=== PATIENT | female | born 1940 | race Caucasian/White ===

== ENCOUNTER 2019-02-19 07:00 | Day surgery (SDC) | payer MEDICARE ==
[2019-02-19] MEDS ORDERED: Lactated Ringers 1,000 ML IV ONE (08:30)
[2019-02-19] MEDS ORDERED: Propofol 200 MG/20 ML SDV ONE (08:44)
[2019-02-19] MEDS ORDERED: fentaNYL 100 MCG/2 ML SDV ONE (08:44)
[2019-02-19] MEDS ORDERED: Midazolam 1 MG/ML 2 ML SDV ONE (08:44)
[2019-02-19] MEDS ORDERED: Cyanocobalamin (Vitamin B12) 1,000 MCG/ML SDV IM ONE (08:45)
[2019-02-19] MEDS ORDERED: MVI, Adult with Vitamin K 10 ML, Thiamine 200 MG, Chromium/Copper/Mang/Selen/Zn 1 ML in... IV ONE ×4 (09:45)
[2019-02-19] MEDS ORDERED: Pantoprazole 40 MG Vial IVPUSH ONE (10:30)
[2019-02-19 12:19] VITALS: BP 167/88
[2019-02-20 17:07] LABS: H. PYLORI BREATH TEST Negative (Negative)
--- NOTE | 2019-02-22 09:59 | OR ---
DATE OF PROCEDURE: 02/19/2019 PREOPERATIVE DIAGNOSIS: Epigastric pain, status post Francisco-en-Y gastric bypass. POSTOPERATIVE DIAGNOSIS: Normal upper GI endoscopy exam, status post Francisco-en-Y gastric bypass. OPERATIVE PROCEDURE: Upper GI endoscopy with biopsies of gastric pouch for CLOtest. ANESTHESIA: IV sedation. INDICATIONS FOR PROCEDURE: This is a 78-year-old presenting with some ongoing epigastric pain, presently is on Nexium. She has tried Carafate as well but did not tolerate that. Plan is to proceed with an upper GI endoscopy with biopsies as indicated. Potential risks including bleeding and perforation were discussed, and the patient wishes to proceed. DETAILS OF PROCEDURE: The patient was taken to the operating room and placed in a left lateral decubitus position. IV sedation was administered, after which the upper GI endoscope was passed orally through the length of the esophagus and into the gastric pouch, and from there through the gastrojejunostomy roughly 20 cm into the Francisco limb. Overall, the findings were entirely normal. There were no areas of inflammation or stricturing present and no retained fluid or suggestion of more distal obstruction, however, seen. At this point, biopsies were obtained from the gastric pouch, sent for CLOtest for H. pylori. Minimal bleeding from the biopsy site was seen and the procedure was then concluded. The plan will be to doubly test the patient for H. pylori by means of a breath test as possibly we are dealing with some inflammation within the bypassed stomach which is not visible by the endoscopic approach. We will continue the Nexium and then also take Tums on a p.r.n. basis helpful. She will be following up with Maryjo Fairbanks at [facility] in roughly 1 month. Ronald Moser MD /[id number]
== END 2019-02-19 12:28 | disposition home or self-care (01) ==
LOC: JP.SDS 07:00
PROVIDERS: ATTEND Surgery
DX: R10.13 Epigastric pain (principal); I25.10 Atherosclerotic heart disease of native coronary artery without angina pectoris; E11.9 Type 2 diabetes mellitus without complications; J44.9 Chronic obstructive pulmonary disease, unspecified; Z91.012 Allergy to eggs; Z88.8 Allergy status to other drugs, medicaments and biological substances; Z98.84 Bariatric surgery status; Z79.899 Other long term (current) drug therapy
CPT/HCPCS: 43239; 83013; 87081; C9113; J2250; J2704; J3010; J3411; J3420; J7120

== ENCOUNTER 2020-05-05 13:09 | Emergency (ER) | payer MEDICARE ==
[2020-05-05 13:23] VITALS: BP 149/61; PULSE 73
[2020-05-05] MEDS ORDERED: Sodium Chloride 0.9% 10 ML Syringe FLUSH PRN (13:48)
[2020-05-05] MEDS ORDERED: LORazepam 2 MG/ML SDV IVPUSH ONE (13:48)
--- NOTE | 2020-05-05 13:52 | EDM.PDOC ---
ED HPI GENERAL MEDICAL PROBLEM - General Chief Complaint: General Stated Complaint: POSSIBLE MINI STROKE Time Seen by Provider: 05/05/20 13:30 Source of Information: Reports: Patient, RN Notes Reviewed History Limitations: Reports: No Limitations - History of Present Illness INITIAL COMMENTS - FREE TEXT/NARRATIVE: Jennifer presents today with her family. She reports complaints of right sided headache 06/15 that will not get better with tylenol and ibuprofen. She reports headache has been present for 3 weeks and is now worse. She states she also gets shaking of bother of her arms and hands with the headache. She states the pain starts to the right side of her head and radiates to the right face. The pain is stabbing and constant. She denies difficulty with eating or drinking. She states nothing helps the pain or makes the pain worsen. she reports generalized body aches the past few days. - Related Data Allergies Allergy/AdvReac Type Severity Reaction Status Date / Time isosorbide [Isosorbide] Allergy Mild Rash Verified 05/05/20 13:16 nickel [Nickel] Allergy Unknown Rash Verified 05/05/20 13:16 zoster vaccine live Allergy Unknown Itching Verified 05/05/20 13:16 propoxyphene Allergy Hives Verified 05/05/20 13:16 cows milk Allergy Unknown Cough Uncoded 05/05/20 13:16 Home Meds: Home Meds Calcium Citrate 950 mg PO BID 08/23/13 [History] Cetirizine [ZyrTEC] 10 mg PO DAILY 08/23/13 [History] Cholecalciferol (Vitamin D3) [Vitamin D3] 5,000 unit PO DAILY 08/23/13 [History] Cyanocobalamin (Vitamin B-12) [Vitamin B-12] 1,000 mcg PO DAILY 08/23/13 [History] Esomeprazole [NexIUM] 40 mg PO DAILY 08/23/13 [History] Multivitamin [Multi-Vitamin Daily] 1 tab PO BID 08/23/13 [History] Vitamin B Complex [B Complex] 1 tab PO DAILY 08/23/13 [History] Gabapentin [Neurontin] 400 mg PO DAILY 01/27/15 [History] Simvastatin 40 mg PO BEDTIME 01/27/15 [History] Ondansetron [Zofran ODT] 4 mg PO Q4HR PRN 02/18/19 [History] Fluticasone Propionate [Flonase] 1 spray NASBOTH DAILY 02/19/19 [History] Diclofenac Sodium [Voltaren] 1 applic TOP DAILY 07/28/19 [History] Aspirin [Aspir 81] 81 mg PO DAILY 05/05/20 [History] Fluticasone Propionate [Flonase] 1 dose MARTINA ASDIRECTED 05/05/20 [History] Lisinopril/Hydrochlorothiazide [Lisinopril-Hctz 20-12.5 mg Tab] 1 tab PO DAILY 05/05/20 [History] Ranitidine [Zantac] 150 mg PO BID 05/05/20 [History] Past Medical History HEENT History: Reports: Cataract, Impaired Vision, Other (See Below) Other HEENT History: wears glasses Cardiovascular History: Reports: High Cholesterol, Hypertension Respiratory History: Reports: Asthma Gastrointestinal History: Reports: GERD Genitourinary History: Reports: Renal Calculus 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: Musculoskeletal History: Reports: Arthritis, Other (See Below) Other Musculoskeletal History: right hip pain with R lower back pain Neurological History: Reports: None Psychiatric History: Reports: None Endocrine/Metabolic History: Reports: Diabetes, Type II, Obesity/BMI 30+ Hematologic History: Reports: Blood Transfusion(s) Immunologic History: Reports: None Oncologic (Cancer) History: Reports: None Dermatologic History: Reports: None - Infectious Disease History Infectious Disease History: Reports: Chicken Pox, Measles, Mumps - Past Surgical History Head Surgeries/Procedures: Reports: None HEENT Surgical History: Reports: Cataract Surgery GI Surgical History: Reports: Appendectomy, Bariatric Procedure, Cholecystectomy, Colonoscopy, EGD, Other (See Below) Female Surgical History: Reports: Hysterectomy, Salpingo-Oophorectomy Musculoskeletal Surgical History: Reports: Knee Replacement Social & Family History - Tobacco Use Smoking Status *Q: Never Smoker - Caffeine Use Caffeine Use: Reports: Coffee - Recreational Drug Use Recreational Drug Use: No ED ROS GENERAL - Review of Systems Review Of Systems: See Below Constitutional: Denies: Fever, Chills, Malaise, Weakness, Fatigue, Diaphoresis HEENT: Reports: Other (right sided headache that radiates to the right face) Respiratory: Reports: No Symptoms Cardiovascular: Reports: No Symptoms Endocrine: Reports: No Symptoms GI/Abdominal: Reports: No Symptoms : Reports: No Symptoms Musculoskeletal: Reports: Other (generalized body aches) Skin: Reports: No Symptoms Neurological: Reports: Headache, Tremors. Denies: Confusion, Dizziness, Numbness, Paresthesia, Seizure, Syncope, Tingling, Trouble Speaking, Difficulty Walking, Weakness, Change in Speech, Gait Disturbance Psychiatric: Reports: No Symptoms Hematologic/Lymphatic: Reports: No Symptoms Immunologic: Reports: No Symptoms ED EXAM, GENERAL - Physical Exam Exam: See Below Exam Limited By: No Limitations General Appearance: Alert, WD/WN, Mild Distress Eye Exam: Bilateral Eye: EOMI, Normal Inspection, PERRL Ears: Normal External Exam, Normal Canal, Hearing Grossly Normal, Normal TMs Nose: Normal Inspection, Normal Mucosa, No Blood Throat/Mouth: Normal Inspection, Normal Lips, Normal Gums, Normal Oropharynx, Normal Voice, No Airway Compromise Head: Atraumatic, Normocephalic. No: Facial Swelling, Facial Tenderness, Sinus Tenderness Neck: Normal Inspection, Supple, Non-Tender, Full Range of Motion. No: Lymphadenopathy (R), Lymphadenopathy (L) Respiratory/Chest: No Respiratory Distress, Lungs Clear, Normal Breath Sounds, No Accessory Muscle Use, Chest Non-Tender. No: Crackles, Rales, Rhonchi, Wheezing Cardiovascular: Normal Peripheral Pulses, Regular Rate, Rhythm, No Edema, Other (murmur noted) Peripheral Pulses: 2+: Radial (L), Radial (R) GI/Abdominal: Normal Bowel Sounds, Soft, Non-Tender, No Organomegaly, No Distention Back Exam: Normal Inspection, Full Range of Motion. No: CVA Tenderness (R), CVA Tenderness (L) Extremities: Normal Inspection, Normal Range of Motion, Non-Tender, No Pedal Edema, Normal Capillary Refill Neurological: Alert, Oriented, CN II-XII Intact, Normal Cognition, Normal Gait, Normal Reflexes, No Motor/Sensory Deficits, Other (No tremors noted, GCS 15, NIH 0) Psychiatric: Normal Affect, Anxious Skin Exam: Warm, Dry, Intact, Normal Color, No Rash Lymphatic: No Adenopathy Course - Vital Signs Last Recorded V/S: Last Vital Signs Temp 35.8 C L 05/05/20 13:25 Pulse 73 05/05/20 13:25 Resp 15 05/05/20 13:25 BP 149/61 H 05/05/20 13:25 Pulse Ox 93 L 05/05/20 13:25 - Orders/Labs/Meds Orders: Active Orders 24 hr Category Date Time Status Sodium Chloride 0.9% [Saline Flush] Med 05/05/20 13:48 Active 10 ml FLUSH ASDIRECTED PRN Saline Lock Insert [OM.PC] Routine Oth 05/05/20 13:48 Ordered Medication Orders Sodium Chloride (Saline Flush) 10 ml FLUSH ASDIRECTED PRN PRN Reason: Keep Vein Open Last Admin: 05/05/20 13:55 Dose: 10 ml Documented by: SAM Labs: Laboratory Tests 05/05/20 05/05/20 05/05/20 Range/Units 13:56 13:56 13:56 WBC 6.7 (4.5-11.0) K/uL RBC 4.12 (3.30-5.50) M/uL Hgb 12.0 (12.0-15.0) g/dL Hct 36.9 (36.0-48.0) % MCV 90 (80-98) fL MCH 29 (27-31) pg MCHC 33 (32-36) % Plt Count 228 (150-400) K/uL Neut % (Auto) 57 (36-66) % Lymph % (Auto) 30 (24-44) % [place] % (Auto) 9 H (2-6) % Eos % (Auto) 3 (2-4) % Baso % (Auto) 1 (0-1) % PT 11.4 (9.5-12.0) sec INR 1.05 (0.80-1.20) Sodium 142 (140-148) mmol/L Potassium 3.7 (3.6-5.2) mmol/L Chloride 106 (100-108) mmol/L Carbon Dioxide 26 (21-32) mmol/L Anion Gap 9.7 (5.0-14.0) mmol/L BUN 18 (7-18) mg/dL Creatinine 1.0 (0.6-1.0) mg/dL Est Cr Clr Drug Dosing 38.97 mL/min Estimated GFR (MDRD) 54 L (>60) Glucose 92 (74-106) mg/dL Calcium 9.1 (8.5-10.1) mg/dL Total Bilirubin 0.5 (0.2-1.0) mg/dL AST 32 (15-37) U/L ALT 36 (12-78) U/L Alkaline Phosphatase 55 (46-116) U/L Total Protein 7.1 (6.4-8.2) g/dL Albumin 3.8 (3.4-5.0) g/dL Globulin 3.3 (2.3-3.5) g/dL Albumin/Globulin Ratio 1.2 (1.2-2.2) Patient lab work reviewed, no acute findings. Meds: Medications Generic Name Dose Route Start Last Admin Trade Name Freq PRN Reason Stop Dose Admin Sodium Chloride 10 ml 05/05/20 13:48 05/05/20 13:55 Saline Flush FLUSH 10 ml ASDIRECTED PRN Administration Keep Vein Open Discontinued Medications Generic Name Dose Route Start Last Admin Trade Name Freq PRN Reason Stop Dose Admin Ketorolac Tromethamine 15 mg 05/05/20 14:29 05/05/20 14:35 Toradol IVPUSH 05/05/20 14:30 15 mg ONETIME ONE Administration Lorazepam 0.5 mg 05/05/20 13:48 05/05/20 13:54 Ativan IVPUSH 05/05/20 13:49 0.5 mg ONETIME ONE Administration - Radiology Interpretation Free Text/Narrative:: Head CT without contrast shows no acute findings. CT Results Date: 05/05/20 - Re-Assessments/Exams Free Text/Narrative Re-Assessment/Exam: 05/05/20 14:30 Patient reports nausea has improve but headache remains. Lab work reviewed, head CT reviewed. No significant findings noted. She can have toradol 15mg IV for pain. 05/05/20 15:13 Pain improved, 12/13 Reviewed lab, CT use of naproxen, gabapentin with patient and her daughter, all her questions were answered. They are in agreement with plan. Departure - Departure Time of Disposition: 15:14 Disposition: Home, Self-Care 01 Clinical Impression: Headache, Facial pain - Discharge Information Instructions: Migraine Headache, [id number] Referrals: Dot Landers CNM [Primary Care Provider] - Forms: ED Department Discharge Additional Instructions: Jennifer has been evaluated and treated for headache/facial pain. Head CT without contrast negative for any acute findings. Pain improved after lorazepam 0.5mg IV, toradol 15mg IV. Concern for trigeminal nerve involvement. Jennifer will take gabapentin as directed, follow up with porcelain technician this week and her primary provider this week. Recheck of pain, status, use of gabapentin and any need to continue past 7 days of prescribed medication. Take naproxen twice per day with food for pain. Report to the emergency room for any worsening, issues or concerns. Sepsis Event Note (ED) - Evaluation Sepsis Screening Result: No Definite Risk - Focused Exam Vital Signs: Vital Signs Temp Pulse Resp BP Pulse Ox 05/05/20 13:25 35.8 C L 73 15 149/61 H 93 L 05/05/20 13:22 35.8 C L 73 15 149/61 H 93 L - My Orders Last 24 Hours: My Active Orders 05/05/20 13:48 Sodium Chloride 0.9% [Saline Flush] 10 ml FLUSH ASDIRECTED PRN Saline Lock Insert [OM.PC] Routine - Assessment/Plan Last 24 Hours: My Active Orders 05/05/20 13:48 Sodium Chloride 0.9% [Saline Flush] 10 ml FLUSH ASDIRECTED PRN Saline Lock Insert [OM.PC] Routine Assessment:: Headache, Facial pain Plan: Jennifer has been evaluated and treated for headache/facial pain. Head CT without contrast negative for any acute findings. Pain improved after lorazepam 0.5mg IV, toradol 15mg IV. Concern for trigeminal nerve involvement. Jennifer will take gabapentin as directed, follow up with porcelain technician this week and her primary provider this week. Recheck of pain, status, use of gabapentin and any need to continue past 7 days of prescribed medication. Take naproxen twice per day with food for pain. Report to the emergency room for any worsening, issues or concerns.
--- NOTE | 2020-05-05 14:18 | CT ---
Head wo Cont CLINICAL HISTORY: Right-sided headache COMPARISON: MR 2016 TECHNIQUE: Transverse scans were obtained from the base of the skull through the vertex without IV contrast on a multislice, multidetector CT scanner. Auto dosage reduction and iterative reconstruction techniques employed. FINDINGS: No focal abnormal parenchymal density is identified. There is no mass effect, hemorrhage, or extraaxial collection. The basal cisterns and sulci over the convexities are prominent. The ventricles are prominent. IMPRESSION: Moderate atrophy No acute intracranial process
[2020-05-05] MEDS ORDERED: Ketorolac 30 MG/ML SDV IVPUSH ONE (14:29)
== END 2020-05-05 15:30 | disposition home or self-care (01) ==
LOC: JP.ED 13:09
DX: R51 Headache (principal); E78.00 Pure hypercholesterolemia, unspecified; I10 Essential (primary) hypertension; J45.909 Unspecified asthma, uncomplicated; K21.9 Gastro-esophageal reflux disease without esophagitis; M19.90 Unspecified osteoarthritis, unspecified site; E11.9 Type 2 diabetes mellitus without complications; E66.9 Obesity, unspecified; Z68.30 Body mass index [BMI] 30.0-30.9, adult; Z88.8 Allergy status to other drugs, medicaments and biological substances; Z91.011 Allergy to milk products; Z91.048 Other nonmedicinal substance allergy status
CPT/HCPCS: 36415; 70450; 80053; 85025; 85610; 96374; 96375; 99284; J1885; J2060

== ENCOUNTER 2021-05-11 12:24 | Emergency (ER) | payer MEDICARE ==
--- NOTE | 2021-05-11 12:51 | EDM.PDOC ---
ED HPI GENERAL MEDICAL PROBLEM - General Chief Complaint: Neuro Symptoms/Deficits Stated Complaint: FALL AND HIT HEAD Time Seen by Provider: 05/11/21 12:39 Source of Information: Reports: Patient, RN Notes Reviewed History Limitations: Reports: No Limitations - History of Present Illness INITIAL COMMENTS - FREE TEXT/NARRATIVE: 80-year-old female presents emergency department today via EMS services following a fall, she was at a local store states she was feeling fine turned around next thing she knew she woke up on the floor she denies any dizziness she was not on even ground does not think she tripped over anything. She has no neurologic complaints. Was able to ambulate to the ambulance at the store. At this time she feels back to her normal self. She did injure herself with a fall hit the front part of her forehead on the concrete floor. Another family member is now present states that she tripped over an uneven step on the ground and then hit her head against the wall. - Related Data Allergies Allergy/AdvReac Type Severity Reaction Status Date / Time isosorbide [Isosorbide] Allergy Mild Rash Verified 05/11/21 12:32 nickel [Nickel] Allergy Unknown Rash Verified 05/11/21 12:32 zoster vaccine live Allergy Unknown Itching Verified 05/11/21 12:32 propoxyphene Allergy Hives Verified 05/11/21 12:32 cows milk Allergy Unknown Cough Uncoded 05/11/21 12:32 Home Meds: Home Meds Calcium Citrate 950 mg PO BID 08/23/13 [History] Cetirizine [ZyrTEC] 10 mg PO DAILY 08/23/13 [History] Cholecalciferol (Vitamin D3) [Vitamin D3] 5,000 unit PO DAILY 08/23/13 [History] Cyanocobalamin (Vitamin B-12) [Vitamin B-12] 1,000 mcg PO DAILY 08/23/13 [History] Esomeprazole [NexIUM] 40 mg PO DAILY 08/23/13 [History] Multivitamin [Multi-Vitamin Daily] 1 tab PO BID 08/23/13 [History] Vitamin B Complex [B Complex] 1 tab PO DAILY 08/23/13 [History] Gabapentin [Neurontin] 400 mg PO DAILY 01/27/15 [History] Simvastatin 40 mg PO BEDTIME 01/27/15 [History] Ondansetron [Zofran ODT] 4 mg PO Q4HR PRN 02/18/19 [History] Fluticasone Propionate [Flonase] 1 spray NASBOTH DAILY 02/19/19 [History] Diclofenac Sodium [Voltaren] 1 applic TOP DAILY 07/28/19 [History] Aspirin [Aspir 81] 81 mg PO DAILY 05/05/20 [History] Fluticasone Propionate [Flonase] 1 dose MARTINA ASDIRECTED 05/05/20 [History] Lisinopril/Hydrochlorothiazide [Lisinopril-Hctz 20-12.5 mg Tab] 1 tab PO DAILY 05/05/20 [History] Ranitidine [Zantac] 150 mg PO BID 05/05/20 [History] Past Medical History HEENT History: Reports: Cataract, Impaired Vision, Other (See Below) Other HEENT History: wears glasses Cardiovascular History: Reports: High Cholesterol, Hypertension Respiratory History: Reports: Asthma Gastrointestinal History: Reports: GERD Genitourinary History: Reports: Renal Calculus 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: Musculoskeletal History: Reports: Arthritis, Other (See Below) Other Musculoskeletal History: right hip pain with R lower back pain Neurological History: Reports: None Psychiatric History: Reports: None Endocrine/Metabolic History: Reports: Diabetes, Type II, Obesity/BMI 30+ Hematologic History: Reports: Blood Transfusion(s) Immunologic History: Reports: None Oncologic (Cancer) History: Reports: None Dermatologic History: Reports: None - Infectious Disease History Infectious Disease History: Reports: Chicken Pox, Measles, Mumps - Past Surgical History Head Surgeries/Procedures: Reports: None HEENT Surgical History: Reports: Cataract Surgery Cardiovascular Surgical History: Reports: None Respiratory Surgical History: Reports: None GI Surgical History: Reports: Appendectomy, Bariatric Procedure, Cholecystectomy, Colonoscopy, EGD, Other (See Below) Other GI Surgeries/Procedures: gastro scopy Female Surgical History: Reports: Hysterectomy, Salpingo-Oophorectomy Endocrine Surgical History: Reports: None Musculoskeletal Surgical History: Reports: Knee Replacement Dermatological Surgical History: Reports: None Social & Family History - Tobacco Use Tobacco Use Status *Q: Never Tobacco User Second Hand Smoke Exposure: No - Caffeine Use Caffeine Use: Reports: Coffee - Recreational Drug Use Recreational Drug Use: No ED ROS GENERAL - Review of Systems Review Of Systems: See Below Constitutional: Reports: No Symptoms HEENT: Reports: No Symptoms Respiratory: Reports: No Symptoms Cardiovascular: Reports: Syncope Endocrine: Reports: Low Glucose GI/Abdominal: Reports: No Symptoms : Reports: No Symptoms Musculoskeletal: Reports: No Symptoms Skin: Reports: Bruising Neurological: Reports: No Symptoms - Physical Exam Exam: See Below Text/Narrative:: Examination the scalp she does have a hematoma developing on the frontal lobe right side Exam Limited By: No Limitations General Appearance: Alert, WD/WN, No Apparent Distress Eye Exam: Bilateral Eye: EOMI, Normal Inspection, PERRL Respiratory/Chest: No Respiratory Distress, Lungs Clear, Normal Breath Sounds, No Accessory Muscle Use, Chest Non-Tender Cardiovascular: Regular Rate, Rhythm, No Murmur GI/Abdominal: Soft, Non-Tender Neuro Exam (Abbreviated): Alert, Oriented, CN II-XII Intact, Normal Gait (Normal gait however she does have an unsteady shift however this is chronic), Other (Chronic tremor) #1 Interpretation EKG Date: 05/11/21 Time: 13:37 Rhythm: NSR [place]: Normal P-Wave: Present QRS: RBBB ST-T: Normal QT: Normal Comparison: Change From Previous EKG Course - Vital Signs Last Recorded V/S: Last Vital Signs Temp 96.7 F L 05/11/21 12:35 Pulse 64 05/11/21 12:35 Resp 12 05/11/21 12:35 BP 147/70 H 05/11/21 12:35 Pulse Ox 96 05/11/21 12:35 - Orders/Labs/Meds Orders: Active Orders 24 hr Category Date Time Status EKG Documentation Completion [RC] ASDIRECTED Care 05/11/21 12:48 Active EKG 12 Lead [EK] Routine Ther 05/11/21 12:47 Ordered Departure - Departure Time of Disposition: 13:46 Disposition: Home, Self-Care 01 Condition: Fair Clinical Impression: Head injury Qualifiers: Encounter type: initial encounter Qualified Code(s): S09.90XA - Unspecified injury of head, initial encounter - Discharge Information Instructions: Head Injury, Adult, [id number] Referrals: PCP,Unknown [Primary Care Provider] - Forms: ED Department Discharge Additional Instructions: Continue with your regular medications, please follow-up with your primary care in the next 3 to 5 days for reevaluation, call return to the emergency department worsening symptoms Sepsis Event Note (ED) - Evaluation Sepsis Screening Result: No Definite Risk - Focused Exam Vital Signs: Vital Signs Temp Pulse Resp BP Pulse Ox 05/11/21 12:35 96.7 F L 64 12 147/70 H 96 05/11/21 12:30 96.7 F L 64 12 147/70 H 96 - My Orders Last 24 Hours: My Active Orders 05/11/21 12:47 EKG 12 Lead [EK] Routine 05/11/21 12:48 EKG Documentation Completion [RC] ASDIRECTED - Assessment/Plan Last 24 Hours: My Active Orders 05/11/21 12:47 EKG 12 Lead [EK] Routine 05/11/21 12:48 EKG Documentation Completion [RC] ASDIRECTED Plan: Assessment Acuity = acute Etiology = due to uneven ground with head injury Manifestations = none Location of injury = Home Lab values = CT scan of the head shows no acute process EKG demonstrates a sinus rhythm there is a right bundle branch block equivocal on left axis deviation this is a change from prior EKG on the 2016 and had a left bundle branch block both of these are unknown to her Plan I did review CT scan results EKG results with her I think the etiology is this is related to a fall on uneven ground. Just have her follow-up with her primary care for further evaluation This note was dictated using eOriginal voice recognition software please call with any questions on syntax or grammar.
[2021-05-11 13:17] VITALS: BP 147/70; PULSE 64
--- NOTE | 2021-05-11 13:24 | CT ---
Head wo Cont CLINICAL HISTORY: Head injury, right frontal COMPARISON: 2019 TECHNIQUE: Transverse scans were obtained from the base of the skull through the vertex without IV contrast on a multislice, multidetector CT scanner. Auto dosage reduction and iterative reconstruction techniques employed. FINDINGS: No focal abnormal parenchymal density is identified. There is no mass effect, hemorrhage, or extraaxial collection. The basal cisterns and sulci over the convexities are mildly prominent. The ventricles are normal for age. There is a right frontal scalp hematoma. No underlying fracture is identified IMPRESSION: No acute intracranial process Right frontal scalp hematoma
== END 2021-05-11 13:55 | disposition home or self-care (01) ==
LOC: JP.ED 12:24
DX: S00.03XA Contusion of scalp, initial encounter (principal); E78.00 Pure hypercholesterolemia, unspecified; I10 Essential (primary) hypertension; K21.9 Gastro-esophageal reflux disease without esophagitis; E11.9 Type 2 diabetes mellitus without complications; E66.9 Obesity, unspecified; Z68.30 Body mass index [BMI] 30.0-30.9, adult; Z79.82 Long term (current) use of aspirin; Z91.09 Other allergy status, other than to drugs and biological substances; Z88.7 Allergy status to serum and vaccine; Z91.011 Allergy to milk products; Z79.899 Other long term (current) drug therapy; W18.09XA Striking against other object with subsequent fall, initial encounter
CPT/HCPCS: 70450; 70450-26; 93005; 99284-25

== ENCOUNTER 2022-12-02 11:23 | Emergency (ER) | payer MEDICARE ==
[2022-12-02] MEDS ORDERED: Sodium Chloride 0.9% 10 ML Syringe FLUSH PRN (11:30)
[2022-12-02] MEDS ORDERED: Aspirin 81 MG Tab.Chew PO ONE (11:32)
[2022-12-02 11:40] VITALS: BP 135/81; PULSE 67
== END 2022-12-02 13:07 | disposition home or self-care (01) ==
LOC: JP.ED 11:23
DX: I45.2 Bifascicular block (principal); E78.5 Hyperlipidemia, unspecified; I10 Essential (primary) hypertension; E78.00 Pure hypercholesterolemia, unspecified; K21.9 Gastro-esophageal reflux disease without esophagitis; E11.9 Type 2 diabetes mellitus without complications; E66.9 Obesity, unspecified; Z68.30 Body mass index [BMI] 30.0-30.9, adult; Z91.011 Allergy to milk products; Z88.7 Allergy status to serum and vaccine; Z88.8 Allergy status to other drugs, medicaments and biological substances; Z91.048 Other nonmedicinal substance allergy status
CPT/HCPCS: 36415; 71045; 80048; 83880; 84484; 85025; 85610; 85730; 93005; 99285; A9270; J3490

== ENCOUNTER 2023-06-10 09:53 | Emergency (ER) | payer MEDICARE ==
[2023-06-10 10:14] LABS: HEMATOCRIT 38.4 % (34.3-46.0); HEMOGLOBIN 12.9 g/dL (11.2-15.5); MEAN CORPUSCULAR HEMOGLOBIN 30.4 pg (31.6-35.5); MEAN CORPUSCULAR HGB CONC 33.6 g/dL (31.6-35.5); MEAN CORPUSCULAR VOLUME 90.6 fL (81.4-99.0); RED BLOOD CELL COUNT 4.24 M/uL (3.77-5.24); WHITE BLOOD CELL COUNT,WBC 7.9 K/uL (3.2-11.0)
[2023-06-10 10:26] LABS: PROTHROMBIN TIME 10.4 sec (9.2-10.6)
[2023-06-10 10:37] LABS: ALANINE AMINOTRANSFERASE,ALT 25 U/L (12-78); ALBUMIN 3.5 g/dL (3.4-5.0); ALKALINE PHOSPHATASE 60 U/L (46-116); ANION GAP 13.1 mmol/L (5.0-14.0); ASPARTATE AMNIOTRANSFERASE,AST 21 U/L (15-37); BILIRUBIN TOTAL 0.6 mg/dL (0.2-1.0); BLOOD UREA NITROGEN,BUN 15 mg/dL (7-18); CARBON DIOXIDE,CO2 27 mmol/L (21-32); CHLORIDE,CL 103 mmol/L (100-108); CREATININE 1.1 mg/dL (0.6-1.0); EST CRCL DRUG DOSING (CG) 33.74 mL/min; ESTIMATED GFR 51 mL/min (>60); GLUCOSE RANDOM 110 mg/dL (74-106); POTASSIUM,K 4.1 mmol/L (3.6-5.2); PRO B-TYPE NATRIUR PEPT,BNPPRO 1774 pg/mL (5-450); PROTEIN TOTAL,TP 7.1 g/dL (6.4-8.2); SODIUM,NA 139 mmol/L (140-148)
[2023-06-10] MEDS ORDERED: Sodium Chloride 0.9% 75 ML IV ONE (11:57)
[2023-06-10] MEDS ORDERED: Sodium Chloride 0.9% 10 ML Syringe FLUSH ONE (11:57)
[2023-06-10] MEDS ORDERED: Iopamidol 755 Mg/ML 100 ML Bottle IV ONE (11:57)
[2023-06-10 13:33] VITALS: BP 114/51; PULSE 47
[2023-06-10 14:04] LABS: APPEARANCE,URINE SLIGHTLY CLOUDY (CLEAR); COLOR,URINE YELLOW (YELLOW); PROTEIN,URINE NEGATIVE (NEGATIVE)
[2023-06-10 14:05] LABS: AMORPHOUS SEDIMENT,URINE NOT SEEN; BACTERIA,URINE FEW; BILIRUBIN,URINE NEGATIVE (NEGATIVE); EPITHELIAL CELLS,URINE NOT SEEN; GLUCOSE,URINE NEGATIVE (NEGATIVE); KETONES,URINE NEGATIVE (NEGATIVE); LEUKOCYTE ESTERASE,URINE MODERATE (NEGATIVE); MUCUS,URINE FEW; NITRITE,URINE POSITIVE (NEGATIVE); OCCULT BLOOD,URINE NEGATIVE (NEGATIVE); RBC,URINE 0-5 (0-5); UROBILINOGEN,URINE 0.2 EU/dL (0.2-1.0)
== END 2023-06-10 14:20 | disposition home or self-care (01) ==
LOC: JP.ED 09:53
DX: I49.8 Other specified cardiac arrhythmias (principal); E78.00 Pure hypercholesterolemia, unspecified; I10 Essential (primary) hypertension; E11.9 Type 2 diabetes mellitus without complications; K21.9 Gastro-esophageal reflux disease without esophagitis; E66.9 Obesity, unspecified; Z88.8 Allergy status to other drugs, medicaments and biological substances; Z88.7 Allergy status to serum and vaccine; Z91.011 Allergy to milk products; Z79.82 Long term (current) use of aspirin; Z79.899 Other long term (current) drug therapy; Z79.84 Long term (current) use of oral hypoglycemic drugs; Z68.35 Body mass index [BMI] 35.0-35.9, adult
CPT/HCPCS: 36415; 71045; 71275; 80053; 81001; 83605; 83880; 84484; 85027; 85379; 85610; 93005; 99285; J3490; Q9967

== ENCOUNTER 2024-09-06 20:54 | Inpatient (IN) | payer MEDICARE ==
[2024-09-06] MEDS ORDERED: Sodium Chloride 0.9% 10 ML Syringe FLUSH PRN (21:26)
[2024-09-06 21:44] LABS: BASOPHILS ABSOLUTE AUTO 0.03 K/uL (0.00-0.10); BASOPHILS PERCENT AUTO 0.4 % (0.1-1.3); EOSINOPHILS ABSOLUTE AUTO 0.03 K/uL (0.00-0.40); EOSINOPHILS PERCENT AUTO 0.4 % (0.0-5.4); HEMATOCRIT 41.4 % (34.3-46.0); HEMOGLOBIN 14.2 g/dL (11.2-15.5); IMMATURE GRAN ABSOLUTE AUTO 0.03 K/uL (0.00-0.23); IMMATURE GRAN PERCENT AUTO 0.4 % (0.0-0.7); LYMPHOCYTES ABSOLUTE AUTO 1.19 K/uL (0.8-3.3); MEAN CORPUSCULAR HEMOGLOBIN 29.7 pg (31.6-35.5); MEAN CORPUSCULAR HGB CONC 34.3 g/dL (31.6-35.5); MEAN CORPUSCULAR VOLUME 86.6 fL (81.4-99.0); MONOCYTES ABSOLUTE AUTO 0.72 K/uL (0.20-0.90); MONOCYTES PERCENT AUTO 8.5 % (3.3-12.6); NEUTROPHILS ABSOLUTE AUTO 6.51 K/uL (1.0-7.6); NEUTROPHILS PERCENT AUTO 76.3 % (40.0-78.1); PLATELET COUNT,PLT 194 K/uL (130-375); RED BLOOD CELL COUNT 4.78 M/uL (3.77-5.24); WHITE BLOOD CELL COUNT,WBC 8.5 K/uL (3.2-11.0)
[2024-09-06] MEDS: Losartan 50 MG Tab PO ONE (21:53)
[2024-09-06 22:18] LABS: A/G RATIO 0.9 (1.2-2.2); ALANINE AMINOTRANSFERASE,ALT 41 U/L (12-78); ALBUMIN 3.7 g/dL (3.4-5.0); ALKALINE PHOSPHATASE 69 U/L (46-116); ASPARTATE AMNIOTRANSFERASE,AST 88 U/L (15-37); BILIRUBIN TOTAL 1.5 mg/dL (0.2-1.0); BLOOD UREA NITROGEN,BUN 11 mg/dL (7-18); CARBON DIOXIDE,CO2 24 mmol/L (21-32); CHLORIDE,CL 103 mmol/L (100-108); CREATININE 0.8 mg/dL (0.6-1.0); EST CRCL DRUG DOSING (CG) 42.88 mL/min; ESTIMATED GFR 74 mL/min (>60); GLUCOSE RANDOM 153 mg/dL (74-106); POTASSIUM,K 3.4 mmol/L (3.6-5.2); SODIUM,NA 140 mmol/L (140-148)
[2024-09-06 22:19] LABS: ANION GAP 16.4 mmol/L (5.0-14.0); CREATINE KINASE,CK 3704 U/L (26-192)
[2024-09-06 22:31] LABS: INFLUENZA A NAA NEGATIVE (NEGATIVE); INFLUENZA B NAA NEGATIVE (NEGATIVE); RESPIRATORY SYNCYTIAL VIR NAA NEGATIVE (NEGATIVE)
[2024-09-06 22:37] LABS: CORONAVIRUS COVID-19 NAA POSITIVE (NEGATIVE)
[2024-09-06] MEDS: Sodium Chloride 0.9% 60 ML IV SCH (23:07)
[2024-09-06] MEDS: Iopamidol 612 MG/ML 100 ML Bottle IV SCH (23:07)
[2024-09-06] MEDS: Sodium Chloride 0.9% 1,000 ML IV SCH (23:18)
[2024-09-07 01:22] LABS: APPEARANCE,URINE SLIGHTLY CLOUDY (CLEAR); BILIRUBIN,URINE NEGATIVE (NEGATIVE); COLOR,URINE YELLOW (YELLOW); GLUCOSE,URINE NEGATIVE (NEGATIVE); KETONES,URINE 40 mg/dL (NEGATIVE); LEUKOCYTE ESTERASE,URINE SMALL (NEGATIVE); NITRITE,URINE POSITIVE (NEGATIVE); OCCULT BLOOD,URINE MODERATE (NEGATIVE); PROTEIN,URINE 100 mg/dL (NEGATIVE)
[2024-09-07 02:17] LABS: AMORPHOUS SEDIMENT,URINE NOT SEEN; BACTERIA,URINE MODERATE; EPITHELIAL CELLS,URINE RARE; MUCUS,URINE NOT SEEN; RBC,URINE 0-5 (0-5); WBC,URINE 20-30 (0-5)
[2024-09-07] MEDS ORDERED: Magnesium Hydroxide 400 MG/5 ML Susp 30 ML Cup PO PRN (02:56)
[2024-09-07] MEDS ORDERED: Ondansetron 4 MG Tab.DIS PO PRN (02:56)
[2024-09-07] MEDS ORDERED: Sennosides/Docusate Sodium 50-8.6 MG Tab PO PRN (02:56)
[2024-09-07] MEDS ORDERED: Ondansetron 4 MG/2 ML SDV IV PRN (02:56)
[2024-09-07] MEDS ORDERED: Benzonatate 100 MG Cap PO PRN (03:09)
[2024-09-07] MEDS: cefTRIAXone 1 GM in Sodium Chloride 0.9% 50 ML IV SCH (03:16)
[2024-09-07] MEDS: Sodium Chloride 0.9% 1,000 ML IV SCH ×2 (03:16→05:52)
[2024-09-07] MEDS: Enoxaparin 40 MG/0.4 ML Syringe SUBCUT SCH (03:16)
[2024-09-07 06:28] LABS: HEMOGLOBIN 12.2 g/dL (11.2-15.5); MEAN CORPUSCULAR HEMOGLOBIN 29.5 pg (31.6-35.5); MEAN CORPUSCULAR HGB CONC 33.9 g/dL (31.6-35.5); MEAN CORPUSCULAR VOLUME 87.2 fL (81.4-99.0); RED BLOOD CELL COUNT 4.13 M/uL (3.77-5.24); WHITE BLOOD CELL COUNT,WBC 6.5 K/uL (3.2-11.0)
[2024-09-07 06:38] LABS: CALCIUM 7.8 mg/dL (8.5-10.1); CREATININE 0.8 mg/dL (0.6-1.0); EST CRCL DRUG DOSING (CG) 42.88 mL/min; POTASSIUM,K 3.3 mmol/L (3.6-5.2)
[2024-09-07 06:39] LABS: ANION GAP 14.3 mmol/L (5.0-14.0)
[2024-09-07] MEDS: metFORMIN 500 MG Tab PO SCH (07:54)
[2024-09-07] MEDS: Timolol Maleate 0.5% Ophth Soln 5 ML Bottle EYEBOTH SCH (08:02)
[2024-09-07] MEDS: Brimonidine 0.2% Ophth Soln 5 ML Bottle EYEBOTH SCH (08:03)
[2024-09-07] MEDS: Cyanocobalamin (Vitamin B12) 1,000 MCG Tab PO SCH (08:05)
[2024-09-07] MEDS: Aspirin 81 MG Tab.EC PO SCH (08:05)
[2024-09-07] MEDS: Vitamin B Complex Tab PO SCH (08:05)
[2024-09-07] MEDS: Multivitamins with Iron/Calcium/Folic Acid/Minerals Tab PO SCH (08:05)
[2024-09-07] MEDS: Cetirizine 10 MG Tab PO SCH (08:05)
[2024-09-07] MEDS: Cholecalciferol (Vitamin D3) 25 MCG Tab PO SCH (08:05)
[2024-09-07] MEDS: Losartan 50 MG Tab PO SCH (09:37)
[2024-09-07] MEDS: Potassium Chloride 20 MEQ Tab.ER PO ONE ×2 (09:44→16:53)
[2024-09-07] MEDS: Acetaminophen 325 MG Tab PO PRN (13:27)
[2024-09-07] MEDS: Gabapentin 400 MG Cap PO SCH (20:29)
[2024-09-07] MEDS: atorvaSTATin 20 MG Tab PO SCH (20:30)
[2024-09-07] MEDS: Melatonin 3 MG Tab PO PRN (20:34)
[2024-09-08] MEDS: Enoxaparin 40 MG/0.4 ML Syringe SUBCUT SCH (03:46)
[2024-09-08 06:17] LABS: CALCIUM 8.1 mg/dL (8.5-10.1); CREATININE 0.7 mg/dL (0.6-1.0); EST CRCL DRUG DOSING (CG) 49.01 mL/min
[2024-09-11] MEDS: Amoxicillin/Clavulanate K 875-125 MG Tab PO SCH (20:36)
[2024-09-12 05:16] VITALS: BP 156/64; PULSE 65
== END 2024-09-12 11:25 | disposition home or self-care (01) | DRG 564 ==
LOC: JP.ED 20:54 → JP.MS 09-07 02:07
PROVIDERS: ADMIT Registered Nurse; ATTEND Hospitalist
DX: T79.6XXA Traumatic ischemia of muscle, initial encounter (principal); U07.1 COVID-19; N30.01 Acute cystitis with hematuria; E78.00 Pure hypercholesterolemia, unspecified; I48.91 Unspecified atrial fibrillation; I10 Essential (primary) hypertension; J45.909 Unspecified asthma, uncomplicated; K21.9 Gastro-esophageal reflux disease without esophagitis; M19.90 Unspecified osteoarthritis, unspecified site; E11.9 Type 2 diabetes mellitus without complications; H26.9 Unspecified cataract; E66.9 Obesity, unspecified; Z79.51 Long term (current) use of inhaled steroids; F15.90 Other stimulant use, unspecified, uncomplicated; Z88.7 Allergy status to serum and vaccine; Z66 Do not resuscitate; Z91.048 Other nonmedicinal substance allergy status; Z68.41 Body mass index [BMI] 40.0-44.9, adult; I49.9 Cardiac arrhythmia, unspecified; R00.1 Bradycardia, unspecified; Z87.442 Personal history of urinary calculi; Z79.1 Long term (current) use of non-steroidal anti-inflammatories (NSAID); Z68.34 Body mass index [BMI] 34.0-34.9, adult; Z98.49 Cataract extraction status, unspecified eye; Z91.81 History of falling; Z88.8 Allergy status to other drugs, medicaments and biological substances; Z91.011 Allergy to milk products; Z95.0 Presence of cardiac pacemaker; Z79.82 Long term (current) use of aspirin; Z79.02 Long term (current) use of antithrombotics/antiplatelets; Z79.84 Long term (current) use of oral hypoglycemic drugs; Z79.899 Other long term (current) drug therapy; Z98.84 Bariatric surgery status; Z90.49 Acquired absence of other specified parts of digestive tract; Z90.710 Acquired absence of both cervix and uterus; Z98.890 Other specified postprocedural states; Z90.89 Acquired absence of other organs
CPT/HCPCS: 0241U; 36415; 70450; 71260; 80048; 80053; 81001; 82550; 83605; 84484; 85025; 85027; 86140; 87086; 93005; 93010; 96360; 96361; 97110; 97161; 97165; 97530; 97535; 99222; 99232; 99238; 99285; A9270-GY; J0696; J1650; J3490; J7030; Q9967

== ENCOUNTER 2025-03-02 07:12 | Day surgery (SDC) | payer MEDICARE ==
[~2025-03-02 07:12] MED LIST: Propofol 200 MG/20 ML SDV ONE; fentaNYL 100 MCG/2 ML SDV ONE
[2025-03-02 07:51] LABS: HEMATOCRIT 38.7 % (34.3-46.0); HEMOGLOBIN 12.9 g/dL (11.2-15.5); MEAN CORPUSCULAR HGB CONC 33.3 g/dL (31.6-35.5); RED BLOOD CELL COUNT 4.3 M/uL (3.77-5.24)
[2025-03-02 08:06] LABS: ANION GAP 10.7 mmol/L (5.0-14.0); CALCIUM 9.7 mg/dL (8.5-10.1); CREATININE 0.8 mg/dL (0.6-1.0); EST CRCL DRUG DOSING (CG) 42.88 mL/min
[2025-03-02] MEDS: Nozin Nasal Sanitizer NASBOTH ONE (08:06)
[2025-03-02] MEDS: Lactated Ringers 1,000 ML IV SCH (08:07)
[2025-03-02] MEDS: ceFAZolin 2 GM in Premix Bag 1 BAG IV ONE (08:43)
[2025-03-02] MEDS: Bupivacaine 0.5% 30 ML SDV ONE (08:58)
[2025-03-02 10:59] VITALS: BP 180/82; PULSE 66
== END 2025-03-02 11:04 | disposition home or self-care (01) ==
LOC: JP.SDS 07:12
PROVIDERS: ATTEND Specialist
DX: M67.441 Ganglion, right hand (principal); I10 Essential (primary) hypertension; Z79.899 Other long term (current) drug therapy; Z91.011 Allergy to milk products; Z88.1 Allergy status to other antibiotic agents; Z88.8 Allergy status to other drugs, medicaments and biological substances; Z91.048 Other nonmedicinal substance allergy status
CPT/HCPCS: 26160; 36415; 80048; 85027; A9270; J0665; J0690; J2704; J3010; J7120; 01810-QZ